=== PATIENT | female | born 1980 | race Caucasian/White ===

== ENCOUNTER 2021-06-16 02:00 | Emergency (ER) | payer OTHER ==
[~2021-06-16] VITALS: Ht 162.6 cm; Wt 49.9 kg
[2021-06-16 02:06] VITALS: BP 140/83
[2021-06-16] MEDS ORDERED: KETOROLAC 60 MG/2 ML VIAL IM ONE (02:10)
[2021-06-16] MEDS ORDERED: CIPR500T4 PO (02:36)
[2021-06-16] MEDS ORDERED: ACET-8386 PO (02:36)
[2021-06-16] MEDS ORDERED: IBUP-2213 PO (02:36)
[2021-06-16] MEDS ORDERED: PSEU120T22 PO (02:36)
[2021-06-16 03:05] VITALS: BP 140/83
== END 2021-06-16 03:05 | disposition home or self-care (01) ==
LOC: MED 02:00
DX: N12 Tubulo-interstitial nephritis, not specified as acute or chronic (principal); J32.9 Chronic sinusitis, unspecified; G43.909 Migraine, unspecified, not intractable, without status migrainosus; Z88.0 Allergy status to penicillin; Z98.890 Other specified postprocedural states
CPT/HCPCS: 81002; 81025; 96372; 99283; J1885